=== PATIENT | female | born 1985 | race American Indian/Alaskan Native ===

== ENCOUNTER 2017-10-22 08:33 | Outpatient (CLI) | payer OTHER | END 2017-10-22 09:32 | disposition home or self-care (01) | LOC: NST 08:33 | DX: Z34.02 Encounter for supervision of normal first pregnancy, second trimester (principal) ==

== ENCOUNTER 2017-11-05 09:54 | Outpatient (CLI) | payer OTHER | END 2017-11-05 10:58 | disposition home or self-care (01) | LOC: NST 09:54 | DX: Z34.83 Encounter for supervision of other normal pregnancy, third trimester (principal) ==

== ENCOUNTER 2017-11-19 10:12 | Outpatient (CLI) | payer OTHER | END 2017-11-19 11:56 | disposition home or self-care (01) | LOC: NST 10:12 | DX: O30.003 Twin pregnancy, unspecified number of placenta and unspecified number of amniotic sacs, third trimester (principal); Z34.83 Encounter for supervision of other normal pregnancy, third trimester ==

== ENCOUNTER 2017-12-17 09:04 | Outpatient (CLI) | payer OTHER | END 2017-12-17 10:32 | disposition home or self-care (01) | LOC: NST 09:04 | DX: O30.003 Twin pregnancy, unspecified number of placenta and unspecified number of amniotic sacs, third trimester (principal); Z34.83 Encounter for supervision of other normal pregnancy, third trimester ==

== ENCOUNTER 2017-12-19 08:43 | Outpatient (CLI) | payer OTHER | END 2017-12-19 09:45 | disposition home or self-care (01) | LOC: NST 08:43 | DX: O30.003 Twin pregnancy, unspecified number of placenta and unspecified number of amniotic sacs, third trimester (principal); Z34.83 Encounter for supervision of other normal pregnancy, third trimester ==

== ENCOUNTER 2017-12-19 13:21 | Inpatient (IN) | payer OTHER ==
[~2017-12-19] VITALS: Ht 172.7 cm; Wt 2.3 kg
[2018-01-04] MEDS ORDERED: PRENATAL TABLE1 EAC1 PO (21:40)
[2018-01-04] MEDS ORDERED: NIFE60TA3 PO (21:41)
[2018-01-04] MEDS ORDERED: SYNTHROID50 MCG PO (21:41)
[2018-01-04] MEDS ORDERED: IRON325 MG PO (21:41)
== END 2018-01-07 11:48 | DRG 775 ==
LOC: OB/GYN 01-04 21:35 → LDR 01-04 21:35 → OB/GYN 01-05 20:38 → SURG 02-01 12:47 → LDR 02-01 12:49
PROC: 10E0XZZ Delivery of Products of Conception, External Approach (ICD-10-PCS; principal; 2018-01-05)
PROC: 0KQM0ZZ Repair Perineum Muscle, Open Approach (ICD-10-PCS; 2018-01-05)
PROC: 10907ZC Drainage of Amniotic Fluid, Therapeutic from Products of Conception, Via Natural or Artificial Opening (ICD-10-PCS; 2018-01-05)
PROC: 3E033VJ Introduction of Other Hormone into Peripheral Vein, Percutaneous Approach (ICD-10-PCS; 2018-01-05)
PROC: 4A1HXCZ Monitoring of Products of Conception, Cardiac Rate, External Approach (ICD-10-PCS; 2018-01-05)
DX: O70.1 Second degree perineal laceration during delivery (principal); Z37.2 Twins, both liveborn; O99.824 Streptococcus B carrier state complicating childbirth; Z3A.36 36 weeks gestation of pregnancy

== ENCOUNTER 2017-12-30 08:07 | Outpatient (CLI) | payer OTHER | END 2017-12-30 09:02 | disposition home or self-care (01) | LOC: NST 08:07 | DX: O30.003 Twin pregnancy, unspecified number of placenta and unspecified number of amniotic sacs, third trimester (principal); Z34.83 Encounter for supervision of other normal pregnancy, third trimester ==

== ENCOUNTER 2021-04-30 08:00 | Outpatient (CLI) | payer OTHER ==
[~2021-04-30 08:00] MED LIST: IRON325 MG PO; NIFE60TA3 PO; PRENATAL TABLE1 EAC1 PO; SYNTHROID50 MCG PO
== END 2021-04-30 08:30 | disposition home or self-care (01) ==
LOC: PPH VACUNA 08:00
PROVIDERS: ATTEND Emergency Medicine Pediatric Emergency Medicine
DX: Z23 Encounter for immunization (principal)